=== PATIENT | male | born 1945 ===

== ENCOUNTER 2023-01-20 12:22 | Emergency (ER) | payer SELFPAY ==
[~2023-01-20] VITALS: Ht 172.7 cm; Wt 75.0 kg
[2023-01-20 12:31] VITALS: BP 167/71; PULSE 70; RESP 19; TEMP 98.8; O2SAT 94
[2023-01-20] MEDS ORDERED: TETANUS, DIPHTHERIA, PERTUSSIS VAC/PF 0.5ML (>10YR OLD) IM ONE (13:00)
== END 2023-01-20 14:46 | disposition home or self-care (01) ==
LOC: ER 12:22
DX: S61.411A Laceration without foreign body of right hand, initial encounter (principal); X58.XXXA Exposure to other specified factors, initial encounter; Y93.89 Activity, other specified; Y92.89 Other specified places as the place of occurrence of the external cause; Y99.8 Other external cause status
CPT/HCPCS: 73140; 90715; 90471; 99283; Z7610